=== PATIENT | male | born 2005 | race Caucasian/White ===

== ENCOUNTER 2025-03-23 22:07 | Emergency (ER) | payer OTHER, SELFPAY ==
[2025-03-23 22:16] VITALS: BP 157/87
[2025-03-23 22:35] LABS: Urine Character Clear (Clear)
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
[2025-03-24] MEDS: MOTRIN 600 MG PO (00:27)
[2025-03-24 00:30] VITALS: BP 98/87
== END 2025-03-24 00:37 | disposition home or self-care (01) ==
LOC: EMR 22:07
PROVIDERS: Student in an Organized Health Care Education/Training Program; EMERGENCY PHYSICIAN Student in an Organized Health Care Education/Training Program; FAMILY PHYSICIAN Internal Medicine
DX: S16.1XXA Strain of muscle, fascia and tendon at neck level, initial encounter (principal); S39.012A Strain of muscle, fascia and tendon of lower back, initial encounter; S13.4XXA Sprain of ligaments of cervical spine, initial encounter; V49.60XA Unspecified car occupant injured in collision with unspecified motor vehicles in traffic accident, initial encounter; Y92.410 Unspecified street and highway as the place of occurrence of the external cause; R03.0 Elevated blood-pressure reading, without diagnosis of hypertension
CPT/HCPCS: 99284; 70450; 72125; 81003